=== PATIENT | female | born 1980 | race Caucasian/White ===

== ENCOUNTER 2019-08-02 04:36 | Emergency (ER) | payer SELFPAY ==
[~2019-08-02] VITALS: Ht 170.2 cm; Wt 180.0 kg
[2019-08-02 05:18] LABS: HEMATOCRIT 46.7 % (36.0-47.0); HEMOGLOBIN 15.8 g/dl (12.0-15.5); MEAN CORPUSCULAR HEMOGLOBIN 30.3 pg (27.0-33.0); MEAN CORPUSCULAR HGB CONC 33.8 g/dl (32.0-36.5); MEAN CORPUSCULAR VOLUME 89.5 fl (80.0-96.0); PLATELET COUNT, AUTOMATED 318 10^3/uL (150-450); RED BLOOD COUNT 5.22 10^6/uL (4.00-5.40); WHITE BLOOD COUNT 11.3 10^3/uL (4.0-10.0)
[2019-08-02 05:43] LABS: AMPHETAMINES LEVEL URINE NEGATIVE (NEGATIVE); BARBITURATES URINE NEGATIVE (NEGATIVE); BENZODIAZEPINES URINE NEGATIVE (NEGATIVE); CANNABINOIDS URINE NEGATIVE (NEGATIVE); COCAINE METABOLITE URINE NEGATIVE (NEGATIVE); METHADONE URINE NEGATIVE (NEGATIVE); OPIATES URINE NEGATIVE (NEGATIVE); PHENCYCLIDINE URINE NEGATIVE (NEGATIVE)
[2019-08-02 05:45] LABS: HCG, SERUM QUALITATIVE NEGATIVE (NEGATIVE)
[2019-08-02 06:00] LABS: ACETAMINOPHEN LEVEL < 2.0 UG/ML (10.0-30.0); ALBUMIN 4.6 GM/DL (3.2-5.2); ALT/SGPT 17 U/L (12-78); BILIRUBIN,DIRECT 0.2 MG/DL (0.0-0.2); BILIRUBIN,TOTAL 1.1 MG/DL (0.2-1.0); BLOOD UREA NITROGEN 11 MG/DL (7-18); CALCIUM LEVEL 9.4 MG/DL (8.5-10.1); CARBON DIOXIDE LEVEL 27 MEQ/L (21-32); CHLORIDE LEVEL 109 MEQ/L (98-107); CREATININE FOR GFR 0.78 MG/DL (0.55-1.30); ETHYL ALCOHOL (ETHANOL) 0.171 % (0.000-0.010); GLOMERULAR FILTRATION RATE > 60.0 (>58); GLUCOSE, FASTING 123 MG/DL (70-100); POTASSIUM SERUM 4.1 MEQ/L (3.5-5.1); SALICYLATE LEVEL < 1.7 MG/DL (5.0-30.0); SODIUM LEVEL 142 MEQ/L (136-145); THYROID STIMULATING HORMONE 0.439 uIU/ML (0.358-3.740); TOTAL PROTEIN 8.3 GM/DL (6.4-8.2)
[2019-08-02 06:33] VITALS: BP 130/86
[2019-08-02] MEDS ORDERED: ACETAMINOPHEN TAB 650MG DOSE (2X325MG) PO ONE (06:45)
== END 2019-08-02 08:48 | disposition home or self-care (01) ==
LOC: M ED 04:36
DX: F10.129 Alcohol abuse with intoxication, unspecified (principal); F17.210 Nicotine dependence, cigarettes, uncomplicated; Z88.5 Allergy status to narcotic agent
CPT/HCPCS: 36415; 80048; 80076; 80307; 84443; 84703; 85027; 99284; G0480

== ENCOUNTER 2020-01-25 19:07 | Emergency (ER) | payer BC ==
[~2020-01-25] VITALS: Ht 170.2 cm; Wt 86.4 kg
[2020-01-25 19:08] VITALS: BP 191/100
[2020-01-25] MEDS ORDERED: OXYB5TAB10 PO (19:19)
[2020-01-25] MEDS ORDERED: OMEP-218 PO (19:19)
[2020-01-25] MEDS ORDERED: HYDROMORPHONE HCL 0.5 MG/ 0.5 ML SYRINGE (J1170 PER 1) IV PRN (19:45)
[2020-01-25 19:51] LABS: BASO # 0.1 10^3/uL (0.0-0.2); BASO % 0.7 % (0.0-1.0); EOS # 0.2 10^3/uL (0.0-0.5); HEMATOCRIT 43.5 % (36.0-47.0); HEMOGLOBIN 15.5 g/dl (12.0-15.5); LYMPH # 4.4 10^3/uL (1.5-5.0); LYMPH % 39.7 % (24.0-44.0); MEAN CORPUSCULAR HEMOGLOBIN 30.4 pg (27.0-33.0); MEAN CORPUSCULAR HGB CONC 35.6 g/dl (32.0-36.5); MEAN CORPUSCULAR VOLUME 85.3 fl (80.0-96.0); MONO # 0.6 10^3/uL (0.0-0.8); MONO % 5.2 % (0.0-5.0); NEUTROPHILS # 5.8 10^3/uL (1.5-8.5); PLATELET COUNT, AUTOMATED 273 10^3/uL (150-450); WHITE BLOOD COUNT 11.1 10^3/uL (4.0-10.0)
[2020-01-25] MEDS ORDERED: ONDANSETRON 4MG/2ML VIAL IV ONE (20:00)
[2020-01-25 20:02] LABS: INR 0.96; PARTIAL THROMBOPLASTIN TIME 28.5 SECONDS (25.0-38.4)
--- NOTE | 2020-01-25 20:02 | REPVR ---
PROCEDURE INFORMATION: Exam: CT Head Without Contrast Exam date and time: 01/25/2020 7:41 PM Age: 39 years old Clinical indication: Pain; Headache not specified TECHNIQUE: Imaging protocol: Computed tomography of the head without contrast. Radiation optimization: All CT scans at this facility use at least one of these dose optimization techniques: automated exposure control; mA and/or kV adjustment per patient size (includes targeted exams where dose is matched to clinical indication); or iterative reconstruction. COMPARISON: No relevant prior studies available. FINDINGS: Brain: There is no evidence of intracranial bleed. The ty-white differentiation appears preserved. Ventricles: Normal appearing ventricles. Bones/joints: Unremarkable. No acute fracture. Sinuses: Clear paranasal sinuses. Mastoid air cells: Clear mastoid air cells. Soft tissues: Unremarkable. IMPRESSION: 1. No evidence of intracranial bleed. 2. No evidence of mass effect. Electronically signed by: Lui Oconnell On 01/25/2020 20:03:10 PM
[2020-01-25 20:05] LABS: D-DIMER QUANT 313.42 ng/ml (<500)
[2020-01-25 20:19] LABS: ALBUMIN 4.6 GM/DL (3.2-5.2); ALT/SGPT 29 U/L (12-78); BILIRUBIN,DIRECT 0.2 MG/DL (0.0-0.2); BLOOD UREA NITROGEN 12 MG/DL (7-18); CALCIUM LEVEL 9.4 MG/DL (8.5-10.1); CARBON DIOXIDE LEVEL 23 MEQ/L (21-32); CHLORIDE LEVEL 105 MEQ/L (98-107); CK-MB VALUE MASS < 1.0 NG/ML (<3.6); CPK CREATINE PHOSPHOKINASE 68 U/L (26-192); CREATININE FOR GFR 0.89 MG/DL (0.55-1.30); ETHYL ALCOHOL (ETHANOL) 0.003 % (0.000-0.010); GLOMERULAR FILTRATION RATE > 60.0 (>58); GLUCOSE, FASTING 103 MG/DL (70-100); MB/CK RELATIVE INDEX 1.47 (< OR =4); POTASSIUM SERUM 3.5 MEQ/L (3.5-5.1); SODIUM LEVEL 139 MEQ/L (136-145); TOTAL PROTEIN 7.8 GM/DL (6.4-8.2); TROPONIN I < 0.02 NG/ML (< 0.10)
[2020-01-25] MEDS ORDERED: ACETAMINOPHEN 500 MG TAB PO ONE (20:45)
[2020-01-25] MEDS ORDERED: diphenhydrAMINE 50MG/ML VIAL (J1200) IV ONE (20:45)
[2020-01-25] MEDS ORDERED: NS 1,000 ML IV ONE (20:45)
[2020-01-25] MEDS ORDERED: METOCLOPRAMIDE INJ 10MG/2ML VIAL (J2765 PER 1) IV ONE (20:45)
[2020-01-25] MEDS ORDERED: KETOROLAC 30 MG/ML 1ML VIAL IV ONE (20:45)
[2020-01-25] MEDS ORDERED: MAG SULF 1GM/100ML (MAG RUN) 1 GM in IV 1 EA IV ONE (21:00)
[2020-01-25 21:01] LABS: ERYTHROCYTE SEDIMENTATION RATE 2 mm/hr (0-20)
[2020-01-25] MEDS ORDERED: ISOVUE-370 76% 100ML VIAL As Ordered ONE (22:37)
--- NOTE | 2020-02-14 13:14 | ECGEPIP ---
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 RBBB SEE SCANNED DOWNTIME REPORT
--- NOTE | 2020-02-14 13:17 | ECGEPIP ---
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 RBBB PROLONGED QTC SEE SCANNED DOWNTIME REPORT
--- NOTE | 2020-03-07 18:51 | ECGEPIP ---
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
== END 2020-01-26 00:05 | disposition home or self-care (01) ==
LOC: M ED 19:07
DX: R51 Headache (principal); R94.31 Abnormal electrocardiogram [ECG] [EKG]; Z53.9 Procedure and treatment not carried out, unspecified reason
CPT/HCPCS: 70450; 80047; 80048; 80076; 82550; 82553; 84443; 84484; 84702; 85025; 85379; 85610; 85652; 85730; 86140; 93005; 93041; 94760; 96374; 96375; 99284; G0480; J1170; J1200; J1885; J2405

== ENCOUNTER → 2021-06-14 | Outpatient (CLI) | payer BC ==
[~2021-06-14] MED LIST: OMEP-218 PO; OXYB5TAB10 PO
[2021-06-14 10:30] LABS: HEMATOCRIT 43.7 % (36.0-47.0); HEMOGLOBIN 14.4 g/dl (12.0-15.5); MEAN CORPUSCULAR HEMOGLOBIN 29.3 pg (27.0-33.0); PLATELET COUNT, AUTOMATED 287 10^3/uL (150-450); RED BLOOD COUNT 4.91 10^6/uL (4.00-5.40); WHITE BLOOD COUNT 7.4 10^3/uL (4.0-10.0)
[2021-06-14 10:49] LABS: ERYTHROCYTE SEDIMENTATION RATE 2 mm/hr (0-20)
[2021-06-14 11:15] LABS: ALT/SGPT 19 U/L (12-78); BLOOD UREA NITROGEN 10 MG/DL (7-18); CALCIUM LEVEL 9.1 MG/DL (8.5-10.1); CARBON DIOXIDE LEVEL 27 MEQ/L (21-32); CHLORIDE LEVEL 106 MEQ/L (98-107); CREATININE FOR GFR 0.82 MG/DL (0.55-1.30); GLOMERULAR FILTRATION RATE > 60.0 (>58); GLUCOSE, FASTING 105 MG/DL (70-100); POTASSIUM SERUM 4.1 MEQ/L (3.5-5.1); SODIUM LEVEL 139 MEQ/L (136-145)
[2021-06-14 11:16] LABS: ALBUMIN 4.1 GM/DL (3.2-5.2); BILIRUBIN,TOTAL 0.9 MG/DL (0.2-1.0); CHOLESTEROL LEVEL 174 MG/DL (<200); CHOLESTEROL RISK RATIO 3.551 (<5); FREE T4 1.23 NG/DL (0.76-1.46); HDL CHOLESTEROL 49 MG/DL (>40); LDL CHOLESTEROL 108 MG/DL (<100); NON-HDL-C 125 MG/DL; RHEUMATOID FACTOR QUANT < 10.0 IU/ML (<15.0); THYROID STIMULATING HORMONE 0.424 uIU/ML (0.358-3.740); TOTAL 25(OH) VITAMIN D 27.5 NG/ML (30.0-100.0); TRIGLYCERIDES LEVEL 86 MG/DL (<150)
[2021-06-15 16:08] LABS: ANTINUCLEAR ANTIBODIES DIRECT Negative (Negative); Lyme Disease IgG/IgM Antibodie <0.91 ISR (0.00-0.90); Lyme Disease IgM Ab Quantitati <0.80 index (0.00-0.79)
== END ==
LOC: M LAB 09:47
PROVIDERS: ATTEND Family Medicine
DX: D64.9 Anemia, unspecified (principal); R53.83 Other fatigue; E03.9 Hypothyroidism, unspecified

== ENCOUNTER → 2022-07-06 | Outpatient (CLI) | payer BC, OTHER, SELFPAY ==
[~2022-07-06] MED LIST changes: +OMEP-173 PO; -OMEP-218 PO
== END ==
LOC: M WHC 15:30
PROVIDERS: ATTEND Family Medicine
DX: Z53.9 Procedure and treatment not carried out, unspecified reason (principal)

== ENCOUNTER → 2023-01-29 | Outpatient (CLI) | payer OTHER ==
[2023-01-29 17:41] LABS: FREE THYROXINE INDEX 3.9 % (1.3-4.8); T UPTAKE 35.1 % (22.5-37.0); THYROID STIMULATING HORMONE 1.007 uIU/ML (0.55-4.78); TOTAL T3 109.7 NG/DL (60.0-181.0)
[2023-01-31 11:10] LABS: SSA SJOGRENS A <0.2 AI (0.0-0.9); SSB SJOGRENS B <0.2 AI (0.0-0.9)
== END ==
LOC: M WUC 10:38
PROVIDERS: ATTEND Ophthalmology
DX: M35.00 Sjogren syndrome, unspecified (principal)

== ENCOUNTER → 2024-08-18 | Outpatient (CLI) | payer BC ==
[~2024-08-18] MED LIST changes: +E-Z-GAS II EFFERVESCENT PACKET (SODIUM BICARB./CITRIC ACID/SIMETHICONE) As Ordered ONE; +E-Z-HD 98% w/w 340GM SUSP BTL As Ordered ONE; +E-Z-PAQUE 96% w/w SUSP 176GM BTL As Ordered ONE; -OXYB5TAB10 PO; +OXYB5TAB14 PO
[2024-08-18 10:24] LABS: HEMATOCRIT 46.1 % (36.0-47.0); HEMOGLOBIN 15.7 g/dl (12.0-15.5); MEAN CORPUSCULAR HEMOGLOBIN 30.5 pg (27.0-33.0); MEAN CORPUSCULAR HGB CONC 34.1 g/dl (32.0-36.5); MEAN CORPUSCULAR VOLUME 89.5 fl (80.0-96.0); PLATELET COUNT, AUTOMATED 358 10^3/uL (150-450); RED BLOOD COUNT 5.15 10^6/uL (4.00-5.40); WHITE BLOOD COUNT 11.6 10^3/uL (4.0-10.0)
[2024-08-18 10:55] LABS: ALBUMIN 4.2 G/DL (3.2-5.2); ALKALINE PHOSPHATASE 66 U/L (35-104); ALT/SGPT 28 U/L (7.0-40); AST/SGOT 12 U/L (<34); BILIRUBIN,TOTAL 1.1 MG/DL (0.3-1.2); BLOOD UREA NITROGEN 9 MG/DL (9-23); CALCIUM LEVEL 9.6 MG/DL (8.5-10.1); CARBON DIOXIDE LEVEL 29 MMOL/L (20-31); CHLORIDE LEVEL 102 MMOL/L (98-107); CHOLESTEROL LEVEL 204 MG/DL (<200); CHOLESTEROL RISK RATIO 3.74 (<5); CREATININE FOR GFR 0.81 MG/DL (0.55-1.30); GLOMERULAR FILTRATION RATE > 60.0 (>58); GLUCOSE, FASTING 92 MG/DL (60-100); HDL CHOLESTEROL 54.5 MG/DL (>40); IRON (FE) 60 UG/DL (50-170); LDL CHOLESTEROL 127.3 MG/DL (<100); MAGNESIUM LEVEL 1.9 MG/DL (1.8-2.4); NON-HDL-C 149.5 MG/DL; PERCENT SATURATION 17.1 % (13.2-45.0); SODIUM LEVEL 139 MMOL/L (136-145); TOTAL IRON BINDING CAPACITY 351 UG/DL (250-425); TOTAL PROTEIN 7.6 G/DL (5.7-8.2); TRIGLYCERIDES LEVEL 111 MG/DL (<150)
[2024-08-18 10:57] LABS: THYROID STIMULATING HORMONE 1.192 uIU/ML (0.55-4.78); TOTAL 25(OH) VITAMIN D 17.9 NG/ML (20.0-100.0)
[2024-08-18 11:40] LABS: HEMOGLOBIN A1c 4.6 % (4.0-6.0)
== END ==
LOC: M RAD 09:26
PROVIDERS: ATTEND Family Medicine
DX: R10.9 Unspecified abdominal pain (principal); I10 Essential (primary) hypertension; R53.83 Other fatigue; E03.9 Hypothyroidism, unspecified

== ENCOUNTER → 2024-09-08 | Outpatient (CLI) | payer BC ==
[~2024-09-08] MED LIST changes: -E-Z-GAS II EFFERVESCENT PACKET (SODIUM BICARB./CITRIC ACID/SIMETHICONE) As Ordered ONE; -E-Z-HD 98% w/w 340GM SUSP BTL As Ordered ONE; -E-Z-PAQUE 96% w/w SUSP 176GM BTL As Ordered ONE
== END ==
LOC: M WUC 11:41
PROVIDERS: ATTEND Family Medicine
DX: M17.11 Unilateral primary osteoarthritis, right knee (principal)

== ENCOUNTER 2024-10-05 10:23 | Day surgery (SDC) | payer BC ==
[~2024-10-05] VITALS: Ht 170.2 cm; Wt 89.4 kg
[~2024-10-05 10:23] MED LIST changes: +ERGO500029 PO; +HYDR-3716 PO; +KETO2CR TOP; +PHEN37.511 PO
[2024-10-05 12:17] VITALS: TEMP 97.4
[2024-10-05 12:38] VITALS: BP 160/99; O2SAT 98
== END 2024-10-05 12:48 | disposition home or self-care (01) ==
LOC: M OPP 10:23
PROVIDERS: ATTEND Internal Medicine Gastroenterology
DX: K57.30 Diverticulosis of large intestine without perforation or abscess without bleeding (principal); K64.0 First degree hemorrhoids; K62.5 Hemorrhage of anus and rectum; R19.4 Change in bowel habit; K22.89 Other specified disease of esophagus; K44.9 Diaphragmatic hernia without obstruction or gangrene; R12 Heartburn; Z88.5 Allergy status to narcotic agent; Z79.891 Long term (current) use of opiate analgesic; Z79.899 Other long term (current) drug therapy; F17.290 Nicotine dependence, other tobacco product, uncomplicated

== ENCOUNTER → 2025-01-07 | Outpatient (REF) | payer BC ==
[2025-01-07 12:59] LABS: C REACTIVE PROTEIN QUANTITATIV < 0.50 MG/DL (<1.0)
[2025-01-07 13:05] LABS: RHEUMATOID FACTOR QUANT < 3.5 IU/ML (<14)
== END ==
LOC: M LAB REF 12:17
PROVIDERS: ATTEND Nurse Practitioner Family
DX: M25.50 Pain in unspecified joint (principal); R53.83 Other fatigue

== ENCOUNTER → 2025-03-17 | Outpatient (REF) | payer BC ==
[2025-03-17 19:45] LABS: ESTRADIOL 24.2 PG/ML
[2025-03-17 19:46] LABS: LUTEINIZING HORMONE 3.0 mIU/ML; PROGESTERONE < 0.21 NG/ML
== END ==
LOC: M LAB REF 17:23
PROVIDERS: ATTEND Nurse Practitioner Family
DX: F39 Unspecified mood [affective] disorder (principal); R53.83 Other fatigue; M25.50 Pain in unspecified joint